=== PATIENT | male | born 1970 | race Caucasian/White ===

== ENCOUNTER 2017-01-12 08:56 | Emergency (ER) | payer BC, OTHER ==
[2017-01-12 09:02] VITALS: BP 136/85
[2017-01-12] MEDS ORDERED: Tetan/Diph/Pertus SYR(Tdap)* 0.5 ML SYR(BOOSTRIX) use SYR IM ONE (09:04)
[2017-01-12] MEDS ORDERED: Lidocaine 2% PF * 5 ML VIAL IV ONE (09:17)
[2017-01-12] MEDS ORDERED: Cephalexin CAP* 500 MG PO ONE (10:16)
--- NOTE | 2017-01-13 15:35 | UC ---
Eladio Mon Angela, scribed for Deepika Celaya MD on 01/12/17 at 0912 . Laceration HPI - HPI Summary HPI Summary: This pt is a 46 y/o right-handed male presenting to [facility] c/o a laceration on left fourth finger from a baker chef's knife last night at 10 PM. Pt states the lateral tip of his fourth finger is numb. He notes he went to the ED last night to get a dressing on his finger, but declined to register /check in 2/2 copay cost prohibition. He denies fever, chills, any other injuries. Still oozing red blood. - History Of Current Complaint Chief Complaint: UCLaceration Stated Complaint: FINGER LACERATION Time Seen by Provider: 01/12/17 09:04 Hx Obtained From: Patient Laceration Location: Finger - Left fourth finger Mechanism Of Injury: Sharp Trauma Onset/Duration: Still Present - Allergies/Home Medications Allergies/Adverse Reactions: Allergies Allergy/AdvReac Type Severity Reaction Status Date / Time No Known Allergies Allergy Verified 01/12/17 08:57 PMH/Surg Hx/FS Hx/Imm Hx Previously Healthy: Yes Other Endocrine History: DENIES: Diabetes Other Cardiovascular History: DENIES: HTN, Cardiac disease Other Respiratory History: DENIES: COPD, asthma - Surgical History Surgical History: None - Family History Known Family History: Negative: Cardiac Disease, Hypertension, Diabetes - Social History Alcohol Use: Occasionally Substance Use Type: None Smoking Status (MU): Never Smoked Tobacco Review of Systems Constitutional: Negative Skin: Other - Laceration on left fourth finger Cardiovascular: Negative Neurological: Numbness - on the tip of left ring finger All Other Systems Reviewed And Are Negative: Yes Physical Exam Triage Information Reviewed: Yes Appearance: Well-Nourished Vital Signs: Initial Vital Signs Temp 98.2 F 01/12/17 08:59 Pulse 68 01/12/17 08:59 Resp 15 01/12/17 08:59 BP 136/85 01/12/17 08:59 Pulse Ox 100 01/12/17 08:59 Eye Exam: Normal ENT Exam: Normal Respiratory Exam: Normal, Other - No dyspnea, no tachypnea, normal respiratory rate. Cardiovascular Exam: Normal Cardiovascular: Positive: Other: - Heart rate regular, good general skin color, good capillary refill Abdominal Exam: Normal Abdomen Description: Positive: Nontender, No Organomegaly, Soft Bowel Sounds: Positive: Present Musculoskeletal Exam: Normal Musculoskeletal: Positive: Strength Intact Neurological Exam: Normal - nonfocal, grossly intact except for local distal dysesthesia and anesthesia from site of laceration to distal finger along the pathway of the digital nerve. CR < 2 sec. Psychological Exam: Normal - conversing easily and appropriately Skin Exam: Normal - no visible or reported rash Skin: Positive: Other - Left fourth finger laceration Laceration Repair - Laceration Repair 1 Laceration Size After Repair: Length (cm) - 1.2 cm, Width (mm) - 2 mm, Depth (mm ) - 4 mm Type Injection: Digital Anesthesia Used: 2.0% Lido Closure Material: Sutures Suture Of: Skin Laceration Course/Dx - Course/Dx Course Of Treatment: Tolerated lac repair well. Reviewed WC instructions and need for f/u. 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 Questions answered to the best of my ability. Splint for comfort and stability , as needed. D/w pt. - Differential Dx - Laceration/Wound Provider Diagnoses: Laceration finger 4th L Discharge - Discharge Plan Condition: Stable Disposition: HOME Prescriptions: Cephalexin CAP* [Keflex 500 CAP*] 500 mg PO TID #15 cap Patient Education Materials: Care For Your Stitches (ED) Referrals: Kenn Clark MD [Primary Care Provider] - Jefferson Mera MD [Medical Doctor] - Additional Instructions: Follow up with Dr. Mera (orthopedic doctor production graphic designer) - when you schedule an appointment, please ask to see a HAND SPECIALIST. Please follow up with your primary care provider this week (2 days if possible) for wound check, or if you prefer, you may return here. Seek medical attention for worse or new problems in the meantime. Splint as needed for comfort. The documentation as recorded by the Eladio andres Angela accurately reflects the service I personally performed and the decisions made by me, Deepika Celaya MD.
== END 2017-01-12 10:25 | disposition home or self-care (01) ==
LOC: UCEAST 08:56
DX: S61.215A Laceration without foreign body of left ring finger without damage to nail, initial encounter (principal); W26.0XXA Contact with knife, initial encounter
CPT/HCPCS: 12001; 90471; 90715; 99202; A9270-GY; G0463